=== PATIENT | male | born 1960 | race African-American/Black ===

== ENCOUNTER 2021-05-21 03:02 | Observation (INO) | payer SELFPAY ==
[~2021-05-21] VITALS: Ht 167.6 cm; Wt 99.3 kg
[2021-05-21] MEDS ORDERED: JANU50TA8 PO (03:34)
[2021-05-21] MEDS ORDERED: HYDR-3490 PO (03:34)
[2021-05-21] MEDS ORDERED: SIMV20TA22 PO ×2 (03:34)
[2021-05-21] MEDS ORDERED: METO1TAB7 PO (03:34)
[2021-05-21 03:59] LABS: BASO # 0.1 10^3/uL (0.0-0.2); BASO % 0.5 % (0.0-1.0); EOS % 0.4 % (0.0-3.0); HEMATOCRIT 39.7 % (42.0-52.0); HEMOGLOBIN 13.8 g/dl (13.5-17.5); LYMPH # 1.4 10^3/uL (1.5-5.0); MEAN CORPUSCULAR HEMOGLOBIN 33.1 pg (27.0-33.0); MEAN CORPUSCULAR HGB CONC 34.8 g/dl (32.0-36.5); MEAN CORPUSCULAR VOLUME 95.2 fl (80.0-96.0); MONO # 0.5 10^3/uL (0.0-0.8); MONO % 4.5 % (2.0-8.0); NEUTROPHILS # 8.9 10^3/uL (1.5-8.5); NEUTROPHILS % 81.1 % (36.0-66.0); PLATELET COUNT, AUTOMATED 218 10^3/uL (150-450); RED BLOOD COUNT 4.17 10^6/uL (4.30-6.10); WHITE BLOOD COUNT 10.9 10^3/uL (4.0-10.0)
[2021-05-21] MEDS ORDERED: FAMOTIDINE INJ 20MG/2ML VIAL (S0028 PER 1) IVP ONE (04:20)
[2021-05-21] MEDS ORDERED: METOCLOPRAMIDE INJ 10MG/2ML VIAL (J2765 PER 1) IV ONE (04:20)
[2021-05-21] MEDS ORDERED: MORPHINE 2 MG/ML 1ML VIAL (J2270) IV ONE (04:20)
[2021-05-21] MEDS: GASTROGRAFIN SOLUTION 30ML PO SCH ×2 (05:23→05:51)
[2021-05-21 05:59] LABS: ALBUMIN 4.3 GM/DL (3.2-5.2); ALT/SGPT 36 U/L (12-78); BILIRUBIN,DIRECT 0.3 MG/DL (0.0-0.2); BILIRUBIN,TOTAL 1.1 MG/DL (0.2-1.0); BLOOD UREA NITROGEN 12 MG/DL (7-18); CALCIUM LEVEL 9.4 MG/DL (8.5-10.1); CARBON DIOXIDE LEVEL 27 MEQ/L (21-32); CHLORIDE LEVEL 108 MEQ/L (98-107); CK-MB VALUE MASS < 1.0 NG/ML (<3.6); CPK CREATINE PHOSPHOKINASE 117 U/L (39-308); CREATININE FOR GFR 1.21 MG/DL (0.70-1.30); GLOMERULAR FILTRATION RATE > 60.0 (>56); GLUCOSE, FASTING 147 MG/DL (70-100); LIPASE 270 U/L (73-393); MB/CK RELATIVE INDEX 0.85 (< OR =4); POTASSIUM SERUM 3.5 MEQ/L (3.5-5.1); SODIUM LEVEL 144 MEQ/L (136-145); TROPONIN I < 0.02 NG/ML (< 0.10)
[2021-05-21] MEDS ORDERED: ISOVUE-370 76% 100ML VIAL As Ordered ONE (06:16)
--- NOTE | 2021-05-21 06:33 | REPVR ---
PROCEDURE INFORMATION: Exam: US Abdomen, Limited; Right Upper Quadrant Exam date and time: 05/21/2021 4:55 AM Age: 60 years old Clinical indication: Abdominal pain; Acute; Additional info: Ruq ttp TECHNIQUE: Imaging protocol: US abdomen. Real time ultrasound with image documentation. Limited exam focused on the right upper quadrant. COMPARISON: No relevant prior studies available. FINDINGS: Liver: The hepatic parenchyma is echogenic. No focal hepatic lesions seen. Gallbladder: The gallbladder is significantly distended measuring up to 10.8 x 4.8 cm containing layering stones and sludge. There is no gallbladder wall thickening or pericholecystic fluid. Common bile duct: The CBD is normal in caliber measuring 5 mm in diameter. Pancreas: The pancreas is obscured by bowel gas. Right kidney: The right kidney measures 10.1 x 5.3 x 5.1 cm. There is no right renal mass, stone, cyst or hydronephrosis. IMPRESSION: 1. Significantly distended gallbladder-nearly hydropic containing stones and sludge by with no wall thickening or pericholecystic fluid. Underlying cholecystitis cannot be completely excluded. Correlate with symptoms and LFTs. If indicated HIDA scan may be obtained for further evaluation. 2. Fatty infiltration of the liver. Electronically signed by: Kip English On 05/21/2021 06:33:18 AM
--- NOTE | 2021-05-21 07:54 | REPVR ---
PROCEDURE INFORMATION: Exam: CT Abdomen And Pelvis With Contrast Exam date and time: 05/21/2021 6:52 AM Age: 60 years old Clinical indication: Other: Ruq pain TECHNIQUE: Imaging protocol: Computed tomography of the abdomen and pelvis with contrast. Radiation optimization: All CT scans at this facility use at least one of these dose optimization techniques: automated exposure control; mA and/or kV adjustment per patient size (includes targeted exams where dose is matched to clinical indication); or iterative reconstruction. Contrast material: ISOVUE 370; Contrast volume: 100 ml; Contrast route: INTRAVENOUS (IV); COMPARISON: GALLBLADDER US 05/21/2021 4:42 AM FINDINGS: Mediastinal space: There is a small sliding hiatal hernia. Liver: Normal. No mass. Gallbladder and bile ducts: The gallbladder is significantly distended measuring 10.5 x 4.7 cm with small hypodense fat like densities suggestive of cholesterol stones. There is no biliary ductal dilatation. Pancreas: Normal. No ductal dilation. Spleen: Normal. No splenomegaly. Adrenal glands: There is bilateral adrenal gland thickening. Kidneys and ureters: Normal. No hydronephrosis. Stomach and bowel: There is mild descending colon diverticulosis. Appendix: No evidence of appendicitis. Intraperitoneal space: Unremarkable. No free air. No significant fluid collection. Vasculature: Unremarkable. No abdominal aortic aneurysm. Lymph nodes: There is a 4 mm right middle lobe triangular nodule on axial image 2 possibly intraparenchymal lymph node. Urinary bladder: Unremarkable as visualized. Reproductive: Unremarkable as visualized. Bones/joints: Unremarkable. No acute fracture. Soft tissues: Unremarkable. IMPRESSION: 1. Nearly hydropic gallbladder containing small likely cholesterol stones with no CT findings to suggest acute cholecystitis. Correlation with clinical history and symptoms as well as LFTs is needed. If indicated HIDA scan may be obtained for further evaluation. 2. Small sliding hiatal hernia. 3. Mild descending colon diverticulosis. 4. Mild bilateral adrenal gland hyperplasia. 5. 4 mm right middle lobe triangular nodule possibly intraparenchymal lymph node. - For patients at low risk (minimal or absent history of smoking and of other known risk factors), no routine follow-up is indicated. - For patients at high risk (history of smoking or of other known risk factors), consider optional CT Chest at 12 months. (Reference: Kasia) REFERENCES: Kasia Downey et al. Guidelines for Management of Incidental Pulmonary Nodules Detected on CT Images: From the Fleischner Society 2017. Radiology. 2017;284(1):228-243. Electronically signed by: Kip English On 05/21/2021 07:53:49 AM
[2021-05-21] MEDS ORDERED: ONDANSETRON 4MG/2ML VIAL IV PRN (09:00)
[2021-05-21] MEDS ORDERED: NORCO, ANEXSIA 5/325MG TABLET (HYDROcodone/ACETAMINOPHEN) PO PRN (10:00)
[2021-05-21 10:17] LABS: RSV AMPLIFICATION NEGATIVE (NEGATIVE)
[2021-05-21 11:10] VITALS: BP 153/87
[2021-05-21] MEDS: KETOROLAC 30 MG/ML 1ML VIAL IV PRN ×2 (13:08→20:53)
[2021-05-21] MEDS: PIPERACILLIN/TAZOBACTAM SOD 3.375 GM in D5W MINI-BAG PLUS 50 ML IV SCH ×3 (13:08→22:56)
[2021-05-21] MEDS: NS 1,000 ML IV SCH ×2 (13:08→20:51)
[2021-05-21] MEDS: PANTOPRAZOLE 40MG VIAL (C9113 PER 1) IV SCH (13:08)
[2021-05-21 14:00] VITALS: BP 137/71
[2021-05-21] MEDS: SENOKOT S TAB PO SCH ×2 (14:07→20:51)
[2021-05-21] MEDS: METOPROLOL SUCC (TopROL XL) 50MG **XL** TAB PO SCH (14:07)
--- NOTE | 2021-05-21 15:26 | ECGEPIP ---
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
[2021-05-21] MEDS ORDERED: SIMVASTATIN 20 MG TAB PO SCH (21:00)
[2021-05-22] MEDS: NS 1,000 ML IV SCH (03:23)
[2021-05-22] MEDS: PIPERACILLIN/TAZOBACTAM SOD 3.375 GM in D5W MINI-BAG PLUS 50 ML IV SCH (03:23)
[2021-05-22] MEDS: KETOROLAC 30 MG/ML 1ML VIAL IV PRN (03:23)
[2021-05-22 06:12] VITALS: BP 118/70
[2021-05-22 07:38] LABS: HEMATOCRIT 38.5 % (42.0-52.0); HEMOGLOBIN 13.5 g/dl (13.5-17.5); MEAN CORPUSCULAR HEMOGLOBIN 33.1 pg (27.0-33.0); MEAN CORPUSCULAR HGB CONC 35.1 g/dl (32.0-36.5); MEAN CORPUSCULAR VOLUME 94.4 fl (80.0-96.0); PLATELET COUNT, AUTOMATED 217 10^3/uL (150-450); RED BLOOD COUNT 4.08 10^6/uL (4.30-6.10); WHITE BLOOD COUNT 16.8 10^3/uL (4.0-10.0)
[2021-05-22 08:08] LABS: ALBUMIN 3.6 GM/DL (3.2-5.2); ALT/SGPT 47 U/L (12-78); BILIRUBIN,TOTAL 2.3 MG/DL (0.2-1.0); BLOOD UREA NITROGEN 10 MG/DL (7-18); CALCIUM LEVEL 9.1 MG/DL (8.5-10.1); CARBON DIOXIDE LEVEL 26 MEQ/L (21-32); CHLORIDE LEVEL 107 MEQ/L (98-107); CREATININE FOR GFR 1.42 MG/DL (0.70-1.30); GLOMERULAR FILTRATION RATE > 60.0 (>56); GLUCOSE, FASTING 126 MG/DL (70-100); SODIUM LEVEL 142 MEQ/L (136-145); TOTAL PROTEIN 6.9 GM/DL (6.4-8.2)
[2021-05-22] MEDS: PANTOPRAZOLE 40MG VIAL (C9113 PER 1) IV SCH (08:28)
[2021-05-22 08:29] VITALS: BP 118/70
[2021-05-22] MEDS: SENOKOT S TAB PO SCH (08:29)
[2021-05-22] MEDS: METOPROLOL SUCC (TopROL XL) 50MG **XL** TAB PO SCH (08:29)
[2021-05-22] MEDS ORDERED: AUGM875T28 PO (11:17)
--- NOTE | 2021-05-22 11:22 | HPE ---
HISTORY AND PHYSICAL DATE OF ADMISSION: 05/21/2021 CHIEF COMPLAINT: Abdominal pain. HISTORY OF PRESENT ILLNESS: The patient is a 60-year-old male who presents with right upper quadrant abdominal pain which started late on Friday. The pain was persistent and did not improve. He came into the emergency room late in the evening and was found to have signs of distended gallbladder; otherwise everything else was within normal limits. He did have some slight nausea at home, but no problems with nausea or vomiting here, just having difficulty with controlling his pain. Because of that, I admitted him for observation. After admission, I evaluated him and started him on some Toradol. Within 30 minutes, his pain completely resolved and the plan was to put him on a clear liquid diet and see how he does for the rest of the day. He denies any other symptoms, no problems with bowel movements or urination. No recent travel or trauma. No change in his medications or diet. PAST MEDICAL HISTORY: 1. Hyperlipidemia. 2. Diabetes. PAST SURGICAL HISTORY: Prostatectomy. ALLERGIES: None. HOME MEDICATIONS: Please see the medical record. REVIEW OF SYSTEMS: Pertinent positives and negatives as stated in the HPI. SOCIAL HISTORY: Denies drug, alcohol, or tobacco abuse. PHYSICAL EXAMINATION: GENERAL: Alert and oriented x3. No acute distress. VITAL SIGNS: Temperature 98.7, pulse 87, respiratory rate 18, blood pressure 153/87, pulse oximetry 98% on room air. HEENT: Pupils equally round and reactive to light and accommodation. HEART: S1, S2, regular rate and rhythm. LUNGS: Clear to auscultation bilaterally. ABDOMEN: Soft, tender to palpation in the right upper quadrant only. No rebound, guarding, rigidity. EXTREMITIES: No clubbing, cyanosis, or edema. LABORATORY DATA: White count 10.9, hemoglobin 13.8, platelets 218. Potassium 3.5, creatinine 1.21, total bilirubins 1.1, direct bilirubin 0.3. IMAGIN. Abdomen and pelvis CT shows a hydropic gallbladder containing small stones. No CT findings to suggest acute cholecystitis. Small sliding hiatal hernia. Mild descending colon diverticulosis. Mild bilateral adrenal gland hyperplasia. 2. Gallbladder ultrasound showed a distended gallbladder containing stones and sludge, no wall thickening or pericholecystic fluid. Underlying cholecystitis cannot be completely excluded. Correlate with symptoms and LFTs. A HIDA scan may be obtained for further evaluation. ASSESSMENT AND PLAN: The patient is a 60-year-old male with signs and symptoms of possible biliary duct blockage likely causing a distended gallbladder. RECOMMENDATIONS: Continue with Toradol. See how he does overnight. If his pain remains stable, he can be discharged to home with pain control with Tylenol and Motrin, and low fat diet. We will see him as an outpatient. However, if his pain remains elevated, then we will consider surgery in the morning. For now, he will be on a clear liquid diet and see how well he tolerates it overnight.
--- NOTE | 2021-05-24 14:13 | DSES ---
DISCHARGE SUMMARY DATE OF ADMISSION: 05/21/2021 DATE OF DISCHARGE: 05/22/2021 ADMISSION DIAGNOSIS: 1. Acute cholecystitis. 2. Biliary cholic. DISCHARGE DIAGNOSIS: 1. Acute cholecystitis. 2. Biliary cholic. HOSPITAL COURSE: The patient is a 60-year-old male who presented early in the morning of May 21, 2021, had persistent right upper quadrant pains. After being diagnosed with biliary cholic by the emergency room with cholelithiasis, he did not improve with morphine, so plan was to admit him for observation. Once he was admitted to the floor, I gave him a dose of Toradol, checked back on him shortly afterwards. Within 30 minutes, his pain was completely gone. Started him on a clear liquid diet, left him alone for the rest of the day to see how he did. If he continued to remain stable, he would be discharged home the next morning. If his pain got worse, then I would plan for discharge. The following morning, he was doing great and tolerating diet, up urinating and ambulating without any difficulties. Plan was to discharge home with Augmentin for 10 days to help with any underlying cholecystitis and he will follow with me as an outpatient to schedule an elective cholecystectomy. Just after discharge, his morning labs returned, which revealed his white count had gone slightly up and his bilirubin had gone slightly up. I immediately called over to the floor to hold his discharge, but it was too late, he had just walked out the door. I called his daughter and she said he was not even home yet. He was in route, but she had him call me as soon as he arrived home. I spoke with him over the phone, explained his labs, said had we not ordered any labs, nothing would have changed. I still would have sent him home as is because he was feeling better and looking better. However, with these abnormal elevated labs, I just wanted to notify him of those and be aware of them. I told him and his daughter to be aware of any signs of yellowing of the skin or yellowing of the eyes and also if he starts developing any increased pain or fevers, then we would repeat some labs and possibly imaging, and go from there. He understood and was agreeable with that plan, that we would just take it day by day and see how he feels. All of his questions were answered. He and his daughter were both in agreement and we will monitor him closely outpatient.
== END 2021-05-22 09:35 | disposition home or self-care (01) ==
LOC: M ED 03:02 → M ED INP 09:17 → ENRESERV 10:32 → M MS5PR 11:15
PROVIDERS: ADMIT Surgery; ATTEND Surgery
DX: K82.1 Hydrops of gallbladder (principal); K44.9 Diaphragmatic hernia without obstruction or gangrene; K57.90 Diverticulosis of intestine, part unspecified, without perforation or abscess without bleeding; K82.8 Other specified diseases of gallbladder; K83.8 Other specified diseases of biliary tract; R10.11 Right upper quadrant pain; E78.5 Hyperlipidemia, unspecified; E11.9 Type 2 diabetes mellitus without complications; Z90.79 Acquired absence of other genital organ(s); Z79.899 Other long term (current) drug therapy; Z79.84 Long term (current) use of oral hypoglycemic drugs
CPT/HCPCS: 36415; 74177; 76705; 80048; 80053; 80076; 81001; 82550; 82553; 83690; 84484; 85025; 85027; 87631; 93005; 93041; 96374; 96375; 96376; 99285; C9113; J1885; J2270; J2543; J2765; Q9963; Q9967

== ENCOUNTER → 2021-05-24 | Outpatient (CLI) | payer SELFPAY ==
[~2021-05-24] MED LIST: AUGM875T28 PO; HYDR-3490 PO; JANU50TA8 PO; METO1TAB7 PO; SIMV20TA22 PO
[2021-05-24 18:33] LABS: HEMATOCRIT 39.5 % (42.0-52.0); HEMOGLOBIN 13.7 g/dl (13.5-17.5); MEAN CORPUSCULAR HEMOGLOBIN 32.2 pg (27.0-33.0); MEAN CORPUSCULAR HGB CONC 34.7 g/dl (32.0-36.5); MEAN CORPUSCULAR VOLUME 92.9 fl (80.0-96.0); PLATELET COUNT, AUTOMATED 248 10^3/uL (150-450); RED BLOOD COUNT 4.25 10^6/uL (4.30-6.10); WHITE BLOOD COUNT 17.9 10^3/uL (4.0-10.0)
[2021-05-24 18:59] LABS: ALBUMIN 3.3 GM/DL (3.2-5.2); ALT/SGPT 35 U/L (12-78); BILIRUBIN,TOTAL 1.2 MG/DL (0.2-1.0); BLOOD UREA NITROGEN 13 MG/DL (7-18); CALCIUM LEVEL 9.1 MG/DL (8.5-10.1); CARBON DIOXIDE LEVEL 30 MEQ/L (21-32); CHLORIDE LEVEL 101 MEQ/L (98-107); CREATININE FOR GFR 1.13 MG/DL (0.70-1.30); GLOMERULAR FILTRATION RATE > 60.0 (>56); GLUCOSE, FASTING 103 MG/DL (70-100); POTASSIUM SERUM 3.1 MEQ/L (3.5-5.1); SODIUM LEVEL 140 MEQ/L (136-145); TOTAL PROTEIN 7.2 GM/DL (6.4-8.2)
== END ==
LOC: M LAB 17:44
PROVIDERS: ATTEND Surgery
DX: K80.18 Calculus of gallbladder with other cholecystitis without obstruction (principal)